=== PATIENT | male | born 1970 | race Caucasian/White ===

== ENCOUNTER 2019-01-31 04:21 | Inpatient (IN) | payer BC, OTHER ==
[~2019-01-31] VITALS: Ht 190.5 cm; Wt 146.6 kg
[~2019-01-31 04:21] MED LIST: COUM2.5T17 PO; IBUP80TA PO; LOVE0.8I3 SC; PERCOCET PO
[2019-01-31] MEDS ORDERED: PRAV80TA2 PO (04:32)
[2019-01-31] MEDS ORDERED: DULC100C2 PO (04:32)
[2019-01-31] MEDS ORDERED: VITAD1000T PO (04:32)
[2019-01-31] MEDS ORDERED: APAP325T4 PO (04:32)
[2019-01-31] MEDS ORDERED: MIRA3350 PO (04:32)
[2019-01-31] MEDS ORDERED: XARE10TA PO (04:32)
[2019-01-31] MEDS ORDERED: NS 1,000 ML IV ONE (06:45)
[2019-01-31 07:28] LABS: BASO # 0.1 10^3/uL (0.0-0.2); BASO % 0.4 % (0.0-1.0); EOS # 0.1 10^3/uL (0.0-0.50); EOS % 0.5 % (0.0-3.0); HEMATOCRIT 48.3 % (42.0-52.0); HEMOGLOBIN 16.5 g/dl (13.5-17.5); LYMPH # 3.5 10^3/uL (1.5-4.5); MEAN CORPUSCULAR HEMOGLOBIN 29.5 pg (27.0-33.0); MEAN CORPUSCULAR HGB CONC 34.2 g/dl (32.0-36.5); MEAN CORPUSCULAR VOLUME 86.3 fl (80.0-96.0); MONO # 1.4 10^3/uL (0.0-0.8); MONO % 8.4 % (0.0-5.0); NEUTROPHILS # 11.5 10^3/uL (1.8-7.7); PLATELET COUNT, AUTOMATED 346 10^3/uL (150-450); WHITE BLOOD COUNT 16.7 10^3/uL (4.0-10.0)
[2019-01-31] MEDS ORDERED: ONDANSETRON 4MG/2ML VIAL (J2405) IV ONE (07:30)
[2019-01-31 07:38] LABS: INR 1.05; PROTHROMBIN TIME 13.8 SECONDS (12.1-14.4)
[2019-01-31 07:39] LABS: PARTIAL THROMBOPLASTIN TIME 30.5 SECONDS (25.4-37.6)
[2019-01-31] MEDS: MORPHINE 4 MG/ML 1ML VIAL/SYRINGE (J2270) IV PRN ×2 (07:44→08:45)
--- NOTE | 2019-01-31 07:45 | REP ---
Clinical: Constipation. Technique: Two supine views of the abdomen and pelvis. Findings: Bowel gas pattern is nonspecific and without significant fecal stasis, obstruction or perforation. No organomegaly. No abnormal calcifications. Skeletal structures intact. Impression: Nonspecific bowel gas pattern. Electronically Signed by Gilmer Mishra MD 01/31/2019 07:37 A
[2019-01-31 07:46] LABS: BLOOD UREA NITROGEN 16 MG/DL (7-18); C REACTIVE PROTEIN QUANTITATIV 3.29 MG/DL (0.00-0.30); CALCIUM LEVEL 9.3 MG/DL (8.5-10.1); CARBON DIOXIDE LEVEL 27 MEQ/L (21-32); CHLORIDE LEVEL 103 MEQ/L (98-107); GLOMERULAR FILTRATION RATE > 60.0 (>60); GLUCOSE, FASTING 104 MG/DL (70-100); POTASSIUM SERUM 4.3 MEQ/L (3.5-5.1); SODIUM LEVEL 138 MEQ/L (136-145)
[2019-01-31] MEDS ORDERED: ISOVUE-370 76% 100ML VIAL (Q9967) As Ordered ONE (08:09)
[2019-01-31] MEDS ORDERED: CIPROFLOXACIN 400 MG in APPROPRIATE DILUENT 1 EA IV ONE (09:00)
[2019-01-31] MEDS ORDERED: metroNIDAZOLE 500 MG in APPROPRIATE DILUENT 1 EA IV ONE (09:00)
[2019-01-31] MEDS ORDERED: VITA500045 PO (09:34)
[2019-01-31] MEDS ORDERED: ACETAMINOPHEN 325 MG TAB PO PRN (09:45)
[2019-01-31 11:00] VITALS: BP 115/64
[2019-01-31] MEDS ORDERED: traMADol 50 MG TAB PO PRN (11:45)
[2019-01-31] MEDS ORDERED: MORPHINE 4 MG/ML 1ML VIAL/SYRINGE (J2270) IV PRN ×2 (11:45→13:30)
[2019-01-31] MEDS ORDERED: ONDANSETRON 4MG/2ML VIAL (J2405) IV PRN (11:45)
[2019-01-31] MEDS: DOCUSATE SODIUM 100 MG CAP PO SCH ×2 (11:58→19:54)
--- NOTE | 2019-01-31 12:14 | HPEPDOC ---
General Date of Admission Jan 31, 2019 at 09:22 Date of Service: Jan 31, 2019 Chief Complaint The patient is a 48-year-old male admitted with a reason for visit of Bleeding Per Rectum Proctitis. Source: Patient History of Present Illness The patient is a 48-year-old gentleman with a previous history of DVT and pulmonary embolism about 5 years ago currently on treatment with Xarelto who was in his usual state of health until about one week ago when the patient reports she initially had some problems with constipation. He started taking MiraLAX as well as stool softenerinitially did not have resolution of her symptoms. Reports that in fact he had rales with external hemorrhoids secondary to straining. However, the external hemorrhoids resolved over the last couple of days. He also did have bowel movements with the MiraLAX and stool soft now. However, even after the bowel movements, the patient continued to have what he describes as a deep rectal pain. He also had noticed blood on the outside of his stoolshe is unable to quantify the exact amount however he reports it was less than 1 cupful. The pain is described as a dull ache, 5-6/10 in intensity, improved after he received morphine in the emergency room. He denies any associated fevers/chills or sweats. Denies any chest pain/shortness of breath or cough. No nausea or vomiting. Given the persistent pain as well as a slight bleeding he had per rectum, he decided to present to the ER for further evaluati on. In the ER, the patient initially underwent evaluation for possible prostatitis, however, urinalysis did not appear consistent with UTI. He was noted to have a white count of 16,000. He subsequently underwent CT scan of his abdomen pelvisfindings appeared to show thickening of the rectal wall along with some associated strandinggiven concerns regarding possible proctitis versus low diverticulitis, the patient was evaluated by Dr. Shipley in the ER. Admission was recommended with IV antibiotics and plan to repeat CT scan in 2 days to rule out any developing rectal abscess. Home Medications Scheduled Ergocalciferol (Vitamin D2) (Vitamin D2) 50,000 Unit Capsule, 50,000 UNIT PO QWEEK, (Reported) SUNDAYS Pravastatin Sodium (Pravastatin Sodium) 80 Mg Tablet, 80 MG PO QHS, (Reported) Rivaroxaban (Xarelto) 10 Mg Tablet, 10 MG PO QHS, (Reported) Scheduled PRN Acetaminophen (Acetaminophen) 325 Mg Tablet, 975 MG PO TID PRN for PAIN, (Reported) Docusate Sodium (Dulcolax Stool Softener) 100 Mg Capsule, 300 MG PO DAILY PRN for CONSTIPATION, (Reported) Polyethylene Glycol 3350 (Miralax) 119 Gm Powder, 17 GRAM PO DAILY PRN for CONSTIPATION, (Reported) Allergies Coded Allergies: No Known Allergies (Unverified , 05/22/14) Past Medical History Medical History 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 Mom is healthy. Social History * Smoker: cigar, other (occasional cigars) Alcohol: occationally Drugs: denies A-FIB/CHADSVASC A-FIB History Current/History of A-Fib/PAF?: No Review of Systems Other systems Negative for 10 systems except as noted under history of present illness Physical Examination General Exam: Positive: Alert, Cooperative, No Acute Distress Eye Exam: Positive: PERRLA ENT Exam: Positive: Mucous membr. moist/pink Chest Exam: Positive: Clear to auscultation, Normal air movement; Negative: Rales, Rhonchi, Wheezing Heart Exam: Positive: Rate Normal, Normal S1, Normal S2; Negative: Tachycardic, Gallops, Murmurs, Rubs Abdomen Exam: Positive: Soft; Negative: Tenderness, Hepatospenomegaly, Mass Skin Exam: Negative: Rash Neuro Exam: Positive: Other (Awake, alert, oriented 3. Answering questions appropriately. Moving all 4 extremities. Normal speech.) Psych Exam: Positive: Mental status NL, Mood NL Vital Signs Vital Signs Date Time Temp Pulse Resp B/P (MAP) Pulse Ox O2 Delivery O2 Flow Rate FiO2 01/31/19 10:35 98.8 91 16 131/59 (83) 97 Room Air Laboratory Data Labs 24H Laboratory Tests 2 01/31/19 07:14: Immature Granulocyte % (Auto) 0.7, White Blood Count 16.7H, Red Blood Count 5.60, Hemoglobin 16.5, Hematocrit 48.3, Mean Corpuscular Volume 86.3, Mean Corpuscular Hemoglobin 29.5, Mean Corpuscular Hemoglobin Concent 34.2, Red Cell Distribution Width 13.1, Platelet Count 346, Neutrophils (%) (Auto) 69.0H, Lymphocytes (%) (Auto) 21.0L, Monocytes (%) (Auto) 8.4H, Eosinophils (%) (Auto) 0.5, Basophils (%) (Auto) 0.4, Neutrophils # (Auto) 11.5H, Lymphocytes # (Auto) 3.5, Monocytes # (Auto) 1.4H, Eosinophils # (Auto) 0.1, Basophils # (Auto) 0.1, Nucleated Red Blood Cells % (auto) 0.0, Prothrombin Time 13.8, Prothromb Time International Ratio 1.05, Activated Partial Thromboplast Time 30.5, Urine Color YELLOW, Urine Appearance CLEAR, Urine pH 5.0, Urine Specific [place] 1.025, Urine Protein NEGATIVE, Urine Glucose (UA) NEGATIVE, Urine Ketones NEGATIVE, Urine Blood 1+H, Urine Nitrite NEGATIVE, Urine Bilirubin NEGATIVE, Urine Urobilinogen 2.0H, Urine Leukocyte Esterase NEGATIVE, Urine WBC (Auto) 0, Urine RBC (Auto) 5H, Urine Hyaline Casts (Auto) 0, Urine Bacteria (Auto) NEGATIVE, Urine Squamous Epithelial Cells 0, Urine Mucus (Auto) SMALL, Urine Sperm (Auto) , Anion Gap 8, Glomerular Filtration Rate > 60.0, Blood Urea Nitrogen 16, Creatinine 1.10, Sodium Level 138, Potassium Level 4.3, Chloride Level 103, Carbon Dioxide Level 27, Calcium Level 9.3, C-Reactive Protein, Quantitative 3.29H 01/31/19 08:29: Lactic Acid Level 0.8 CBC/BMP Laboratory Tests 01/31/19 07:14 Red Blood Count 5.60, Mean Corpuscular Volume 86.3, Mean Corpuscular Hemoglobin 29.5, Mean Corpuscular Hemoglobin Concent 34.2, Red Cell Distribution Width 13.1, Neutrophils (%) (Auto) 69.0 H, Lymphocytes (%) (Auto) 21.0 L, Monocytes (%) (Auto) 8.4 H, Eosinophils (%) (Auto) 0.5, Basophils (%) (Auto) 0.4, Neutrophils # (Auto) 11.5 H, Lymphocytes # (Auto) 3.5, Monocytes # (Auto) 1.4 H, Eosinophils # (Auto) 0.1, Basophils # (Auto) 0.1, Calcium Level 9.3 Microbiology Microbiology 01/31/19 Blood Culture, Received Pending 01/31/19 Blood Culture, Received Pending Assessment/Plan X-ray abdomen: Impression: Nonspecific bowel gas pattern. CT scan abdomen and pelvis with IV contrast: Radiology report pending at time of dictation. On personal preliminary review, this seems to be thickening of the rectal wall with some possible surrounding stranding. Assessment and plan: Acute proctitis, possibly diverticulitis rule out developing rectal abscess: -Case was discussed with Dr Shipley from general surgery -Patient will be placed on full liquid diet -IV ciprofloxacin and Flagyl -prn acetaminophen, prn oral Ultram/prn IV morphine for pain control -Plan will be to repeat CT scan of abdomen pelvis with contrast in 2 days. -Hold Xarelto in case patient requires surgical intervention if he does develop rectal/perirectal abscess Bright red bleeding per rectum: -May have been related to the patient's hemorrhoids -Hold Xarelto as noted above - patient will be on bridging enoxaparin -Monitor blood counts History of DVT/pulmonary embolism: -Hold Xarelto -Bridging enoxaparin -Monitor blood counts Hypercholesterolemia: -Hold statin for nowmay resume on discharge her once tolerating oral intake well DVT prophylaxis: -Patient will be on therapeutic dosing of enoxaparin as noted above CODE STATUS: -Full code per my discussion with the patient Disposition: -Admit as an inpatient to medical surgical floors. Anticipated length of stay more than 2 midnights. Anticipate eventual discharge home once patient is medically stable. Plan / VTE VTE Prophylaxis Ordered?: Yes ILDA MATTSON MD Jan 31, 2019 12:14
[2019-01-31] MEDS ORDERED: traMADol 50 MG TAB PO ONE (13:30)
[2019-01-31 14:00] VITALS: BP 112/62
[2019-01-31] MEDS: metroNIDAZOLE 500 MG in APPROPRIATE DILUENT 1 EA IV SCH (17:57)
[2019-01-31 18:00] VITALS: BP 113/63
[2019-01-31] MEDS: traMADol 50 MG TAB PO PRN (19:54)
[2019-01-31] MEDS: ENOXAPARIN 150 MG/ML SYR (J1650) SC SCH (20:00)
[2019-01-31] MEDS: CIPROFLOXACIN 400 MG in APPROPRIATE DILUENT 1 EA IV SCH (21:59)
[2019-01-31 22:00] VITALS: BP 127/78
[2019-02-01] MEDS: metroNIDAZOLE 500 MG in APPROPRIATE DILUENT 1 EA IV SCH ×3 (00:02→16:24)
[2019-02-01] MEDS: traMADol 50 MG TAB PO PRN ×4 (01:31→18:35)
[2019-02-01 06:00] VITALS: BP 125/71
[2019-02-01 06:44] LABS: HEMATOCRIT 43.9 % (42.0-52.0); HEMOGLOBIN 14.9 g/dl (13.5-17.5); MEAN CORPUSCULAR HEMOGLOBIN 30.5 pg (27.0-33.0); MEAN CORPUSCULAR HGB CONC 33.9 g/dl (32.0-36.5); MEAN CORPUSCULAR VOLUME 89.8 fl (80.0-96.0); PLATELET COUNT, AUTOMATED 269 10^3/uL (150-450); RED BLOOD COUNT 4.89 10^6/uL (4.30-6.10); WHITE BLOOD COUNT 9.1 10^3/uL (4.0-10.0)
[2019-02-01 07:02] LABS: ALT/SGPT 54 U/L (12-78); BILIRUBIN,TOTAL 0.9 MG/DL (0.2-1.0); BLOOD UREA NITROGEN 12 MG/DL (7-18); CALCIUM LEVEL 8.5 MG/DL (8.5-10.1); CARBON DIOXIDE LEVEL 32 MEQ/L (21-32); CHLORIDE LEVEL 103 MEQ/L (98-107); CREATININE FOR GFR 1.11 MG/DL (0.70-1.30); GLOMERULAR FILTRATION RATE > 60.0 (>60); GLUCOSE, FASTING 83 MG/DL (70-100); MAGNESIUM LEVEL 2.1 MG/DL (1.8-2.4); SODIUM LEVEL 138 MEQ/L (136-145); TOTAL PROTEIN 6.8 GM/DL (6.4-8.2)
--- NOTE | 2019-02-01 07:39 | REP ---
Clinical: Rectal pain with leukocytosis. Technique: Axial contrast enhanced images from the lung bases to the pubic symphysis using 100 ml Isovue 370 intravenous contrast material with coronal and sagittal re-formations. Comparison: None. Findings: Inflammatory changes are appreciated involving the lower pelvis and perirectal ischiorectal space which may reflect an infectious/inflammatory process involving the rectosigmoid. The bladder is partially collapsed and cannot be evaluated. The prostate gland is grossly unremarkable. No free fluid or drainable collection/abscess. No evidence for bowel obstruction. No free air. The remainder of the small large bowel is grossly unremarkable. Normal terminal ileum and appendix identified in the right lower quadrant. Scattered diverticula noted. Fatty infiltration to the liver appreciated without focal hepatic lesion. Spleen, pancreas, gallbladder, bilateral adrenal glands and kidneys are normal. No ascites. No free air. Mildly prominent lymph nodes in the retroperitoneal space possibly reactive measuring only up to 8 mm maximal diameter are nonspecific. The aorta and vasculature appear normal. Musculoskeletal structures are intact. Impression: 1. Fat stranding through the deep pelvis extending into the perirectal space. Findings suggest an infectious/inflammatory process possibly involving the rectosigmoid, but without significant mucosal thickening or obvious abnormal colonic changes. Clinical correlation is required. No associated ascites or drainable collection. 2. Hepatic steatosis. Electronically Signed by Gilmer Mishra MD 01/31/2019 08:28 A
[2019-02-01] MEDS: DOCUSATE SODIUM 100 MG CAP PO SCH ×2 (08:51→21:58)
[2019-02-01] MEDS: ENOXAPARIN 150 MG/ML SYR (J1650) SC SCH ×2 (08:52→21:59)
[2019-02-01] MEDS: CIPROFLOXACIN 400 MG in APPROPRIATE DILUENT 1 EA IV SCH ×2 (10:13→21:59)
[2019-02-01 14:00] VITALS: BP 121/56
--- NOTE | 2019-02-01 14:22 | IPNPDOC ---
Text Note Date of Service The patient was seen on 02/01/19. NOTE Subjective: Patient is a 48-year-old male with a past medical history of DVT/PE (Dx 2014, on Xarelto), who presented to the ER with complaints of rectal pain. Patient reported that he's been expressing constipation and has been trying different medications for alleviation. Patient is also noted a history of external hemorrhoids. Patient has reported that his external hemorrhoids have resolved, however, he's been expressing persistent rectal pain. In the emergency room, patient had CT scan imaging, which is completed that revealed thickening of his rectal wall and concern for proctitis. Gen. surgery was consulted, who had evaluated the patient in the emergency room. Plan was for continued IV antibiotic therapy and repeating imaging within 48 hours. Patient was admitted to hospitalist service for further evaluation and treatment. Patient was seen and examined at the bedside. Patient reports that his rectal pain is controlled with oral pain control medications. Patient denies a nausea, vomiting. Denies any abdominal pain. Denies any fevers or chills. Does not express any chest pain, shortness breath or palpitations. Patient is able to pas s gas and has been on a clear liquid diet. Objective: Vitals (See below) General: Lying in bed, no acute distress, comfortable, AAOx3 HEENT: NC, AT CVS: RRR, +S1S2 Lungs: Fair air entry b/l, -w/r/r Abdomen: Soft, ND, NT Extremities: - Edema, - Calf tenderness Assessment and plan: Rectal pain - possibly 22/ Acute proctitis, possibly 2/2 diverticulitis rule out developing rectal abscess - Clinically has noted improvement in rectal pain; tolerable with pain medications - Remains afebrile - Physical without any significant findings - Leukocytosis improving - c/w Ciprofloxacin and Flagyl (Day #2) - c/w Tramadol PRN - Dr. Shipley on consult -Case was discussed with Dr Shipley from general surgery -Patient will be placed on full liquid diet -IV ciprofloxacin and Flagyl -prn acetaminophen, prn oral Ultram/prn IV morphine for pain control -Plan will be to repeat CT scan of abdomen pelvis with contrast in 2 days. -Hold Xarelto in case patient requires surgical intervention if he does develop rectal/perirectal abscess Bright red bleeding per rectum - possibly 2/2 inflammatory / infectious changes; possibly 2/2 hemorrhoids - Currently has denied any further rectal bleeding - Hg has remained stable; has declined; however possibly 2/2 dilutional etiology - Xarelto on hold; c/w Lovenox therapeutic History of DVT/pulmonary embolism: - Will hold novel anticoagulation with Xarelto - c/w Lovenox for now pending possibility of intervention DLP - Pravastatin on hold DVT prophylaxis - c/w therapeutic dose Lovenox Code Status: - Full code Disposition: - Will get repeat CT scan tomorrow VS,Fishbone, I+O VS, Fishbone, I+O Laboratory Tests 02/01/19 06:03 Red Blood Count 4.89, Mean Corpuscular Volume 89.8, Mean Corpuscular Hemoglobin 30.5, Mean Corpuscular Hemoglobin Concent 33.9, Red Cell Distribution Width 13.2, Calcium Level 8.5, Aspartate Amino Transf (AST/SGOT) 24, Alanine Aminotransferase (ALT/SGPT) 54, Alkaline Phosphatase 57, Total Bilirubin 0.9, Total Protein 6.8, Albumin 3.0 L Vital Signs Date Time Temp Pulse Resp B/P (MAP) Pulse Ox O2 Delivery O2 Flow Rate FiO2 02/01/19 13:12 18 02/01/19 06:00 97.0 60 125/71 (89) 97 01/31/19 10:35 Room Air I&O- Last 24 Hours up to 6 AM 02/01/19 06:00 Intake Total 2540 ml Output Total 0 ml Balance 2540 ml MILA WEAVER MD Feb 01, 2019 14:22
[2019-02-01 22:00] VITALS: BP 129/67
[2019-02-02] MEDS: metroNIDAZOLE 500 MG in APPROPRIATE DILUENT 1 EA IV SCH ×2 (00:03→08:21)
[2019-02-02] MEDS: traMADol 50 MG TAB PO PRN (00:32)
[2019-02-02 06:00] VITALS: BP 130/84
[2019-02-02] MEDS ORDERED: ISOVUE-370 76% 100ML VIAL (Q9967) As Ordered ONE (07:56)
[2019-02-02] MEDS: DOCUSATE SODIUM 100 MG CAP PO SCH (08:21)
[2019-02-02] MEDS: ENOXAPARIN 150 MG/ML SYR (J1650) SC SCH (08:21)
[2019-02-02] MEDS: CIPROFLOXACIN 400 MG in APPROPRIATE DILUENT 1 EA IV SCH (09:09)
[2019-02-02 09:12] LABS: BASO # 0.1 10^3/uL (0.0-0.2); BASO % 1.3 % (0.0-1.0); EOS # 0.2 10^3/uL (0.0-0.50); EOS % 2.7 % (0.0-3.0); HEMATOCRIT 45.7 % (42.0-52.0); HEMOGLOBIN 15.5 g/dl (13.5-17.5); LYMPH # 3.7 10^3/uL (1.5-4.5); LYMPH % 44.6 % (24.0-44.0); MEAN CORPUSCULAR HEMOGLOBIN 30.2 pg (27.0-33.0); MEAN CORPUSCULAR HGB CONC 33.9 g/dl (32.0-36.5); MEAN CORPUSCULAR VOLUME 89.1 fl (80.0-96.0); MONO % 12.3 % (0.0-5.0); NEUTROPHILS # 3.1 10^3/uL (1.8-7.7); PLATELET COUNT, AUTOMATED 322 10^3/uL (150-450); RED BLOOD COUNT 5.13 10^6/uL (4.30-6.10); WHITE BLOOD COUNT 8.2 10^3/uL (4.0-10.0)
[2019-02-02 10:02] LABS: BLOOD UREA NITROGEN 11 MG/DL (7-18); CALCIUM LEVEL 8.6 MG/DL (8.5-10.1); CARBON DIOXIDE LEVEL 27 MEQ/L (21-32); CHLORIDE LEVEL 100 MEQ/L (98-107); CREATININE FOR GFR 1.12 MG/DL (0.70-1.30); GLOMERULAR FILTRATION RATE > 60.0 (>60); GLUCOSE, FASTING 81 MG/DL (70-100); MAGNESIUM LEVEL 2.1 MG/DL (1.8-2.4); POTASSIUM SERUM 4.1 MEQ/L (3.5-5.1); SODIUM LEVEL 135 MEQ/L (136-145)
[2019-02-02] MEDS ORDERED: FLAG500T PO (10:06)
[2019-02-02] MEDS ORDERED: CIPR500T3 PO (10:06)
--- NOTE | 2019-02-02 11:59 | REP ---
CT ABDOMEN AND PELVIS WITH IV CONTRAST: TECHNIQUE: Axial contrast enhanced images from the lung bases to the pubic symphysis using 100 mL Isovue 370 intravenous contrast material with multiplanar reformations. There is mild atelectatic change in the visualized lung bases. Liver again demonstrates diffuse fatty infiltration. Gallbladder is grossly unremarkable. Spleen is normal in size with no intrinsic abnormality. The adrenals, pancreas, and kidney appear unremarkable. There is no hydroureteronephrosis. There is no abdominal aortic aneurysm. Scattered subcentimeter lymph nodes are seen along the abdominal aorta and iliac vessels. There is no free air or free fluid. The appendix is normal. There is a small umbilical hernia containing fat. In the pelvis once again there are mild streaky inflammatory changes in the perirectal fat. There appears to be some degree of thickening of the wall of the rectum. No abscess collection is seen. Urinary bladder is mildly distended and appears grossly unremarkable. IMPRESSION: Similar findings compared to prior study of 01/31/2019. There is mild to moderate diffuse inflammatory change in the perirectal fat suggesting an inflammatory process. There is likely mild diffuse thickening of the rectal wall. No abscess is seen. Recommend followup to exclude underlying neoplasm. Electronically Signed by Александр Hopper MD 02/04/2019 08:35 A
--- NOTE | 2019-02-02 13:09 | IPNPDOC ---
Subjective General Date/Time Seen The patient was seen on 02/02/19 at 13:07. Subject Chief Complaint/History The patient is a 48-year-old male admitted with a reason for visit of Bleeding Per Rectum Proctitis. Current Medications Current Medications Current Medications Acetaminophen (Tylenol Tab) 975 mg TIDP PRN PO PAIN; Start 01/31/19 at 09:45 Ciprofloxacin 400 mg/IV Miscellaneous Supplies 200 ml @ 200 mls/hr Q12H IV Last administered on 02/02/19at 09:09; Start 01/31/19 at 22:00 Docusate Sodium (Colace) 100 mg BID PO Last administered on 02/02/19at 08:21; Start 01/31/19 at 09:00 Enoxaparin Sodium (Lovenox) 150 mg Q12H SC Last administered on 02/02/19at 08:21; Start 01/31/19 at 21:00 Home Med (Med Rec Complete!) ASDIRECTED XX ; Start 01/31/19 at 09:45; Stop 01/31/19 at 09:45; Status DC Metronidazole 500 mg/IV Miscellaneous Supplies 100 ml @ 100 mls/hr Q8H IV Last administered on 02/02/19at 08:21; Start 01/31/19 at 17:00 Morphine Sulfate (Morphine Sulfate Inj) 2 mg Q3HP PRN IV SEVERE PAIN (PS 8-10); Start 01/31/19 at 13:30 Morphine Sulfate (Morphine Sulfate Inj) 4 mg Q30M PRN IV SEVERE PAIN (PS 8-10) Last administered on 01/31/19at 08:45; Start 01/31/19 at 07:30; Stop 01/31/19 at 08:45; Status DC Morphine Sulfate (Morphine Sulfate Inj) 4 mg Q4HP PRN IV SEVERE PAIN (PS 8-10); Start 01/31/19 at 11:45; Stop 01/31/19 at 13:21; Status DC Ondansetron HCl (ZOFRAN INJection) 4 mg Q6HP PRN IV NAUSEA OR VOMITING; Start 01/31/19 at 11:45 Tramadol HCl (Ultram) 50 mg Q6HP PRN PO MODERATE PAIN (PS 5-7) Last administered on 01/31/19at 11:58; Start 01/31/19 at 11:45; Stop 01/31/19 at 13:21; Status DC Tramadol HCl (Ultram) 100 mg Q6HP PRN PO MODERATE PAIN (PS 5-7) Last administered on 02/02/19at 00:32; Start 01/31/19 at 13:30 Allergies Coded Allergies: No Known Allergies (Unverified , 05/22/14) Objective Physical Examination Examination GENERAL APPEARANCE: Patient seen walking around the room,very comfortable. SKIN: Warm and moist. HEENT: Normocephalic, atraumatic. Hundred palpebral conjunctiva, anicteric sclerae. Lips and mucosa appear moist. ABDOMEN: Abdomen is obese, soft, nondistended, nontender. External rectal examination show no gross inflammation, redness, drainage at the anal verge. Nontender around the anal verge. . Vital Signs Vital Signs Date Time Temp Pulse Resp B/P (MAP) Pulse Ox O2 Delivery O2 Flow Rate FiO2 02/02/19 06:00 97.3 80 16 130/84 (99) 97 01/31/19 10:35 Room Air I&Os I&O- Last 24 Hours up to 6 AM 02/02/19 06:00 Intake Total 1500 ml Output Total 0 ml Balance 1500 ml Laboratory Data Labs 24H Laboratory Tests 2 02/02/19 08:11: Immature Granulocyte % (Auto) 1.1, White Blood Count 8.2, Red Blood Count 5.13, Hemoglobin 15.5, Hematocrit 45.7, Mean Corpuscular Volume 89.1, Mean Corpuscular Hemoglobin 30.2, Mean Corpuscular Hemoglobin Concent 33.9, Red Cell Distribution Width 12.9, Platelet Count 322, Neutrophils (%) (Auto) 38.0, Lymphocytes (%) (Auto) 44.6H, Monocytes (%) (Auto) 12.3H, Eosinophils (%) (Auto) 2.7, Basophils (%) (Auto) 1.3H, Neutrophils # (Auto) 3.1, Lymphocytes # (Auto) 3.7, Monocytes # (Auto) 1.0H, Eosinophils # (Auto) 0.2, Basophils # (Auto) 0.1, Nucleated Red Blood Cells % (auto) 0.0, Anion Gap 8, Glomerular Filtration Rate > 60.0, Blood Urea Nitrogen 11, Creatinine 1.12, Sodium Level 135L, Potassium Level 4.1, Chloride Level 100, Carbon Dioxide Level 27, Calcium Level 8.6, Magnesium Level 2.1 CBC/BMP Laboratory Tests 02/02/19 08:11 Red Blood Count 5.13, Mean Corpuscular Volume 89.1, Mean Corpuscular Hemoglobin 30.2, Mean Corpuscular Hemoglobin Concent 33.9, Red Cell Distribution Width 12.9, Neutrophils (%) (Auto) 38.0, Lymphocytes (%) (Auto) 44.6 H, Monocytes (%) (Auto) 12.3 H, Eosinophils (%) (Auto) 2.7, Basophils (%) (Auto) 1.3 H, Neutrophils # (Auto) 3.1, Lymphocytes # (Auto) 3.7, Monocytes # (Auto) 1.0 H, Eosinophils # (Auto) 0.2, Basophils # (Auto) 0.1, Calcium Level 8.6 Microbiology Microbiology 01/31/19 Blood Culture - Preliminary, Resulted No Growth after 48 hours. All Specime... 01/31/19 Blood Culture - Preliminary, Resulted No Growth after 48 hours. All Specime... Imaging Studies Repeat CT abdomen and pelvis Similar findings compared to prior study of 01/31/2019. There is mild to moderate diffuse inflammatory change in the perirectal fat suggesting an inflammatory process. There is likely mild diffuse thickening of the rectal wall. No abscess is seen. Recommend followup to exclude underlying neoplasm. Impression Proctitis Infectious versus inflammatory clinically patient feels improved. He is not showing any signs of perianal sepsis or severe inflammatory response to this. Patient is getting ready to be discharged home on oral antibiotics Suggest interval colonoscopy to look for possible etiology of the inflammation. Plan / VTE VTE Prophylaxis Ordered?: Yes ANGELINA LICEA MD Feb 02, 2019 13:09
--- NOTE | 2019-02-02 13:45 | DS.PDOC ---
Discharge Summary General Date of Admission Jan 31, 2019 at 09:22 Date of Discharge 02/02/2019 Discharge Summary PROCEDURES PERFORMED DURING STAY: [None]. ADMITTING DIAGNOSES / DISCHARGE DIAGNOSES: Rectal pain - possibly 22/ Acute proctitis, possibly 2/2 diverticulitis rule out developing rectal abscess Bright red bleeding per rectum - possibly 2/2 inflammatory / infectious changes; possibly 2/2 hemorrhoids History of DVT/pulmonary embolism: DLP DVT prophylaxis COMPLICATIONS/CHIEF COMPLAINT: Rectal pain HISTORY OF PRESENT ILLNESS: Patient is a 48-year-old male with a past medical history of DVT/PE (Dx 2013, on Xarelto), who presented to the ER with complaints of rectal pain. Patient reported that he's been expressing constipation and has been trying different medications for alleviation. Patient is also noted a history of external hemorrhoids. Patient has reported that his external hemorrhoids have resolved, however, he's been expressing persistent rectal pain. In the emergency room, patient had CT scan imaging, which is completed that revealed thickening of his rectal wall and concern for proctitis. Gen. surgery was consulted, who had evaluated the patient in the emergency room. Plan was for continued IV antibiotic therapy and repeating imaging within 48 hours. Patient was admitted to hospitalist service for further evaluation and treatment. HOSPITAL COURSE: Rectal pain - possibly 22/ Acute proctitis, possibly 2/2 diverticulitis rule out developing rectal abscess - Clinically has noted improvement in rectal pain; has not required additional pain medications - Remains afebrile - Physical without any significant findings - Leukocytosis resolved - c/w Ciprofloxacin and Flagyl (Day #3); will complete antibiotics as an outpatient - c/w Tramadol PRN - Dr. Shipley on consult Bright red bleeding per rectum - possibly 2/2 inflammatory / infectious changes; possibly 2/2 hemorrhoids - Currently has denied any further rectal bleeding - Hg has remained stable; has declined; however possibly 2/2 dilutional etiology - Xarelto resumed on discharge; s/p Lovenox therapeutic History of DVT/pulmonary embolism: - Will resume Xarelto; will DC Lovenox DLP - Pravastatin on hold DVT prophylaxis - c/w therapeutic dose Lovenox; will return to Xarelto DISCHARGE MEDICATIONS: Please see below. ALLERGIES: Please see below. PHYSICAL EXAMINATION ON DISCHARGE: Vitals (See below) General: Lying in bed, no acute distress, comfortable, AAOx3 HEENT: NC, AT CVS: RRR, +S1S2 Lungs: Fair air entry b/l, no evidence of wheezing / rhonchi / rales Abdomen: Soft, ND, NT Extremities: Edema, - Calf tenderness LABORATORY DATA: Please see below. ACTIVITY: [As tolerated]. DISCHARGE PLAN: Follow up with Dr. Nicolas Meyer within 7 days Remain compliant with treatment plan and medications Return to the ER if you experience any problems DISPOSITION: Home, Self-Care. DISCHARGE CONDITION: [Stable]. TIME SPENT ON DISCHARGE: 35 minutes Vital Signs/I&Os Vital Signs Date Time Temp Pulse Resp B/P (MAP) Pulse Ox O2 Delivery O2 Flow Rate FiO2 02/02/19 06:00 97.3 80 16 130/84 (99) 97 01/31/19 10:35 Room Air I&O- Last 24 Hours up to 6 AM 02/02/19 06:00 Intake Total 1500 ml Output Total 0 ml Balance 1500 ml Laboratory Data Labs 24H Laboratory Tests 2 02/02/19 08:11: Immature Granulocyte % (Auto) 1.1, White Blood Count 8.2, Red Blood Count 5.13, Hemoglobin 15.5, Hematocrit 45.7, Mean Corpuscular Volume 89.1, Mean Corpuscular Hemoglobin 30.2, Mean Corpuscular Hemoglobin Concent 33.9, Red Cell Distribution Width 12.9, Platelet Count 322, Neutrophils (%) (Auto) 38.0, Lymphocytes (%) (Auto) 44.6H, Monocytes (%) (Auto) 12.3H, Eosinophils (%) (Auto) 2.7, Basophils (%) (Auto) 1.3H, Neutrophils # (Auto) 3.1, Lymphocytes # (Auto) 3.7, Monocytes # (Auto) 1.0H, Eosinophils # (Auto) 0.2, Basophils # (Auto) 0.1, Nucleated Red Blood Cells % (auto) 0.0, Anion Gap 8, Glomerular Filtration Rate > 60.0, Blood Urea Nitrogen 11, Creatinine 1.12, Sodium Level 135L, Potassium Level 4.1, Chloride Level 100, Carbon Dioxide Level 27, Calcium Level 8.6, Magnesium Level 2.1 CBC/BMP Laboratory Tests 02/02/19 08:11 Red Blood Count 5.13, Mean Corpuscular Volume 89.1, Mean Corpuscular Hemoglobin 30.2, Mean Corpuscular Hemoglobin Concent 33.9, Red Cell Distribution Width 12.9, Neutrophils (%) (Auto) 38.0, Lymphocytes (%) (Auto) 44.6 H, Monocytes (%) (Auto) 12.3 H, Eosinophils (%) (Auto) 2.7, Basophils (%) (Auto) 1.3 H, Neutrophils # (Auto) 3.1, Lymphocytes # (Auto) 3.7, Monocytes # (Auto) 1.0 H, Eosinophils # (Auto) 0.2, Basophils # (Auto) 0.1, Calcium Level 8.6 Microbiology Microbiology 01/31/19 Blood Culture - Preliminary, Resulted No Growth after 48 hours. All Specime... 01/31/19 Blood Culture - Preliminary, Resulted No Growth after 48 hours. All Specime... Discharge Medications Scheduled Ciprofloxacin HCl (Ciprofloxacin HCl) 500 Mg Tablet, 1 TAB PO BID Ergocalciferol (Vitamin D2) (Vitamin D2) 50,000 Unit Capsule, 50,000 UNIT PO QWEEK, (Reported) SUNDAYS Metronidazole (Flagyl) 500 Mg Tablet, 1 TAB PO BID Pravastatin Sodium (Pravastatin Sodium) 80 Mg Tablet, 80 MG PO QHS, (Reported) Rivaroxaban (Xarelto) 10 Mg Tablet, 10 MG PO QHS, (Reported) Scheduled PRN Acetaminophen (Acetaminophen) 325 Mg Tablet, 975 MG PO TID PRN for PAIN, (Reported) Docusate Sodium (Dulcolax Stool Softener) 100 Mg Capsule, 300 MG PO DAILY PRN for CONSTIPATION, (Reported) Polyethylene Glycol 3350 (Miralax) 119 Gm Powder, 17 GRAM PO DAILY PRN for CONSTIPATION, (Reported) Allergies Coded Allergies: No Known Allergies (Unverified , 05/22/14) MILA WEAVER MD Feb 02, 2019 13:45
== END 2019-02-02 12:42 | disposition home or self-care (01) | DRG 254 ==
LOC: M ED 04:21 → M ED INP 09:22 → M MSPAV 11:00
PROVIDERS: ADMIT Internal Medicine; ATTEND Internal Medicine
DX: K62.89 Other specified diseases of anus and rectum (principal); K57.92 Diverticulitis of intestine, part unspecified, without perforation or abscess without bleeding; K62.5 Hemorrhage of anus and rectum; K64.4 Residual hemorrhoidal skin tags; Z86.718 Personal history of other venous thrombosis and embolism; Z86.711 Personal history of pulmonary embolism; Z79.01 Long term (current) use of anticoagulants; Z79.899 Other long term (current) drug therapy

== ENCOUNTER 2019-06-28 07:42 | Day surgery (SDC) | payer OTHER ==
[~2019-06-28] VITALS: Ht 190.5 cm; Wt 142.0 kg
[~2019-06-28 07:42] MED LIST changes: +APAP325T4 PO; +CHOL100029 PO; +CIPR500T3 PO; +DULC100C2 PO; +FLAG500T PO; +METF500T13 PO; +MIRA3350 PO; +NS 1,000 ML IV ONE; +PRAV80TA2 PO; +ROSU20TA5 PO; +VITA500045 PO; +XARE10TA PO
[2019-06-28] MEDS ORDERED: PROPOFOL 200 MG/20 ML VIAL As Ordered ONE ×2 (07:50→08:59)
[2019-06-28] MEDS ORDERED: LIDOCAINE 2% INJ 100 MG/5 ML SDV (FOR ANES.) As Ordered ONE (07:50)
--- NOTE | 2019-06-28 09:11 | ROOR ---
Patient Name: Jony Ornelas Procedure Date: 06/28/2019 8:50 AM Date of : 1970 Age: 48 Room: [facility] Gender: Male Note Status: Finalized Procedure: Total Colonoscopy to Cecum Indications: Screening for colorectal malignant neoplasm Providers: Baudilio Fermin MD Referring MD: [facility] Admin. Requesting Provider: Medicines: Monitored Anesthesia Care Complications: No immediate complications. Procedure: Pre-Anesthesia Assessment: - The heart rate, respiratory rate, oxygen saturations, blood pressure, adequacy of pulmonary ventilation, and response to care were monitored throughout the procedure. The Colonoscope was introduced through the anus and advanced to the cecum, identified by appendiceal orifice and ileocecal valve. The colonoscopy was performed without difficulty. The patient tolerated the procedure well. The quality of the bowel preparation was excellent. Findings: The perianal and digital rectal examinations were normal. Non-bleeding internal hemorrhoids were found during retroflexion. The hemorrhoids were small and Grade I (internal hemorrhoids that do not prolapse). No other significant abnormalities were identified in a careful examination of the remainder of the colon. The exam was otherwise without abnormality on direct and retroflexion views. Impression: - Non-bleeding internal hemorrhoids. - The examination was otherwise normal on direct and retroflexion views. - No specimens collected. - The exam was otherwise normal to the cecum. Recommendation: - Patient has a contact number available for emergencies. The signs and symptoms of potential delayed complications were discussed with the patient. Return to normal activities tomorrow. Written discharge instructions were provided to the patient. - High fiber diet. - Discharge patient to home. - Continue present medications. - Repeat colonoscopy in 10 years for screening purposes. - Return to referring physician. - The findings and recommendations were discussed with the patient's family. Baudilio eFrmin MD Baudilio Fermin MD 06/28/2019 9:10:42 AM Electronically signed by Baudilio Fermin MD Number of Addenda: 0 Note Initiated On: 06/28/2019 8:50 AM Estimated Blood Loss: Estimated blood loss: none.
[2019-06-28 09:38] VITALS: BP 143/92
== END 2019-06-28 09:39 | disposition home or self-care (01) ==
LOC: M OPP 07:42
PROVIDERS: ATTEND Internal Medicine Gastroenterology
DX: Z12.11 Encounter for screening for malignant neoplasm of colon (principal); K64.0 First degree hemorrhoids; E11.9 Type 2 diabetes mellitus without complications; Z79.84 Long term (current) use of oral hypoglycemic drugs; Z79.899 Other long term (current) drug therapy

== ENCOUNTER → 2021-09-17 | Outpatient (CLI) | payer OTHER ==
[~2021-09-17] MED LIST changes: -NS 1,000 ML IV ONE
== END ==
LOC: M SLEEP 20:00
PROVIDERS: ATTEND Internal Medicine
DX: G47.61 Periodic limb movement disorder (principal)

== ENCOUNTER 2022-06-25 11:14 | Emergency (ER) | payer BC, OTHER ==
[~2022-06-25] VITALS: Ht 190.5 cm; Wt 136.4 kg
[2022-06-25] MEDS ORDERED: IBUP200T46 PO (11:40)
[2022-06-25] MEDS ORDERED: ACE65ERTAB PO (11:40)
[2022-06-25] MEDS ORDERED: NESI25TA PO (11:40)
[2022-06-25] MEDS ORDERED: METHOCARBAMOL 1,000 MG/10 ML VIAL (J2800) IM ONE (12:05)
[2022-06-25] MEDS ORDERED: diazePAM 10 MG TAB PO ONE (13:50)
[2022-06-25] MEDS ORDERED: VALI5TAB PO (15:41)
[2022-06-25 15:50] VITALS: BP 146/80
== END 2022-06-25 15:52 | disposition home or self-care (01) ==
LOC: M ED 11:14
DX: M51.26 Other intervertebral disc displacement, lumbar region (principal); M62.838 Other muscle spasm; E11.9 Type 2 diabetes mellitus without complications; E78.5 Hyperlipidemia, unspecified; Z86.711 Personal history of pulmonary embolism; Z86.718 Personal history of other venous thrombosis and embolism; Z79.01 Long term (current) use of anticoagulants; Z79.899 Other long term (current) drug therapy
CPT/HCPCS: 72131; 96372; 99284; J2800